=== PATIENT | female | born 1980 | race Caucasian/White ===

== ENCOUNTER 2021-01-10 01:22 | Emergency (ER) | payer SELFPAY ==
[~2021-01-10] VITALS: Ht 170.2 cm; Wt 61.4 kg
[~2021-01-10 01:22] MED LIST: NALO4SPR NS
[2021-01-10 02:54] VITALS: BP 134/66
[2021-01-10] MEDS ORDERED: DOXY100C3 PO (03:56)
--- NOTE | 2021-01-10 03:57 | PHYS DOC ---
Past Medical History Additional Past Medical Histor: STAPH INFECTION, HEP C Past Surgical History: Other Additional Past Surgical Histo: I&D Smoking Status: Current Every Day Smoker Alcohol Use: None General Adult EDM: Chief Complaint: SKIN RASH/ABSCESS HPI: HPI: 41-year-old female presents to the emergency department complaining of a left lower abdominal abscess with is developed gradually over the last several days. She reports that she has been injecting drugs in this area. She has had abscesses before. She denies any further symptoms. She denies fever, chills, abdominal pain, nausea vomiting diarrhea. She admits that she is not in heroin Review of Systems: Review of Systems: ROS otherwise negative except for what was mentioned in HPI Heart Score: C/O Chest Pain: No Allergies: Allergies: Allergies Coded Allergies Type Severity Reaction Last Updated Verified No Known Drug Allergies 11/21/20 No Physical Exam: PE: Constitutional: No acute distress, non-toxic appearance. Neck: Normal range of motion, supple, no stridor. Cardiovascular: Heart rate regular rhythm. 2+ radial pulses Lungs & Thorax: No respiratory distress, symmetrical expansion. Bilateral breath sounds clear to auscultation Abdomen: Soft, no tenderness Skin: 4 x 4 area of induration over the left lower quadrant area with associated tenderness and erythema. Extremities: No tenderness, no cyanosis, ROM intact, no edema. Neurologic: Alert and oriented X 3, normal motor function, normal sensory function, no focal deficits noted. Non ataxic gait. GCS 15. Psychologic: Affect normal, judgment normal, mood normal. Current Patient Data: Vital Signs: Vital Signs Date Time Temp Pulse Resp B/P (MAP) Pulse Ox O2 Delivery O2 Flow Rate FiO2 01/10/21 02:54 99.1 74 20 134/66 (88) 95 Room Air 99.1 Radiology/Procedures: Radiology/Procedures: Incision and Drainage Procedure Time: 0330 Confirmed: Patient, procedure, side, and site correct. Consent: Patient has given verbal consent. Indication: Left lower quadrant skin abscess. Performed by: SelfZain DO. Pre procedure exam: Circulation, motor, and sensory intact. Procedural sedation: None. Description: Location: Left lower quadrant skin Anesthesia: 10 mL 1% lidocaine, with epinephrine. Preparation: sterile field established, skin prepped with betadine. Incision: 1 cm incision was made, using a #10 blade scalpel. Technique: fluid collection was manually decompressed, wound probed, loculations decompressed. Drainage: Moderate amount, purulent, bloody, serosanguineous. Post procedure exam: Circulation, motor, sensory examination intact. Patient tolerated: Well. Complications: None. Follow-up: Home care instructions given. Total time: 10 minutes Course & Med Decision Making: Course & Med Decision Making Patient was started on doxycycline for abscess Departure Departure Impression: Primary Impression: Skin abscess Disposition: HOME / SELF CARE / HOMELESS Condition: STABLE Referrals: NO PCP (PCP) Patient Instructions: Abscess, Care After, Abscess, [id number] Additional Instructions: You were seen for an abscess. You had the pus drained. You need to return to the ED if you develop worsening pain, fever, swelling, redness, or any other new or concerning symptoms. You need to return to your primary care or urgent care, or an ED in 2 days to have your wound checked. You should try to keep the area clean and dry in the meantime. Do not submerge in water. You may shower as normal. You have been given a prescription for doxycycline. This medicine is an antibiotic for abscess. Medication was sent to the [facility] on [address]. Please take as prescribed for the full course of the prescription. Do not stop taking the medicine early if you feel better, as this could risk building antibiotic resistance and may put you at risk for a more harmful infection later. The most common side effect of antibiotics include nausea, vomiting, diarrhea and rash. Please come to be evaluated if you develop any symptoms that are concerning to you. One major adverse effect of antibiotics is the development of a diarrheal illness called c. diff colitis, if you develop an excessive amount of diarrhea or are concerned about this please return to the ER or consult a physician. Scripts Doxycycline Hyclate (DOXYCYCLINE HYCLATE) 100 Mg Capsule 1 CAP PO BID, #14 CAP Prov: ZAIN LANG DO 01/10/21 ZAIN LANG DO Jan 10, 2021 03:57
== END 2021-01-10 04:32 | disposition home or self-care (01) ==
LOC: ER 01:22
DX: L02.211 Cutaneous abscess of abdominal wall (principal); F17.200 Nicotine dependence, unspecified, uncomplicated; Z88.0 Allergy status to penicillin
CPT/HCPCS: 10060; 99283